=== PATIENT | female | born 1960 | race Caucasian/White ===

== ENCOUNTER 2018-02-22 20:27 | Emergency (ER) | payer OTHER ==
[~2018-02-22] VITALS: Ht 157.5 cm; Wt 62.6 kg
--- NOTE | 2018-02-22 20:33 | NUR ---
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 PER PT, SHE WAS USING HOME-GYM EQUIPMENT WHEN SHE TRIPPED, RESULTING IN A FALL WHERE SHE HIT HER HEAD ON THE METAL EQUIPMENT. PTS DAUGHTER CALLED 911, BUT PT DENIED TRANSPORT WHEN EMS ARRIVED. PT DENIES SYNCOPAL EPISODE. DENIES LOC. PT IS A&0X4. NO ACTIVE BLEEDING NOTED AT LACERATION.
[2018-02-22] MEDS ORDERED: LIDOCAINE HCL 1% 20 ML VIAL IJ ONE (20:45)
[2018-02-22] MEDS ORDERED: TDAP DIPH,PERTUSS,TET VAC/PF 0.5 ML DISP.SYRIN IM ONE ×2 (20:45→21:02)
--- NOTE | 2018-02-22 20:52 | NUR ---
DR VIVIAN TSE AT BEDSIDE FOR SUTURE.
[2018-02-22] MEDS ORDERED: NEOMY/BACITRA/POLYMYXIN B OINT UD PACKET TP ONE ×2 (21:19→21:30)
--- NOTE | 2018-02-22 21:38 | NUR ---
WOUND CARE PROVIDED FOR LACERATION W/ USE OF NORMAL SALINE AND TRIPLE ANTIBIOTIC OINTMENT. FAMILY AT BEDSIDE. PT A&OX4, AND DENIESS PAIN OR ANY ACUTE DISTRESS AT THIS TIME. PENDING CT SCANS.
--- NOTE | 2018-02-22 21:40 | NUR ---
RADIOLOGY CALLED FOR CT SCANS.
--- NOTE | 2018-02-22 22:14 | NUR ---
RADIOLOGY CALLED AGAIN TO TAKE PT FOR CT.
--- NOTE | 2018-02-22 22:24 | NUR ---
PT TAKEN BY [employer]ETING MANAGER FOR CT VIA WHEELCHAIR. ACCOMPANIED BY GRANDDAUGHTER. NO ACUTE DISTRESS NOTED.
--- NOTE | 2018-02-22 22:40 | NUR ---
PT BACK IN ROOM FROM CT. NO ACUTE EVENTS.
--- NOTE | 2018-02-22 22:52 | NUR ---
Patient discharged to home in stable conditon. Written and verbal after care instructions given. Patient verbalizes understanding of instructions. Pt ambulated from ER w/ steady gait, accompanied by granddaughter. No active bleeding. Pt denies dizziness, n/v, or pain at this time. Pt took all personal belongings.
[2018-02-22 22:53] VITALS: BP 122/78
== END 2018-02-22 22:53 | disposition home or self-care (01) ==
LOC: ER 20:28
DX: S01.01XA Laceration without foreign body of scalp, initial encounter (principal); W01.198A Fall on same level from slipping, tripping and stumbling with subsequent striking against other object, initial encounter; Y93.89 Activity, other specified; Y92.89 Other specified places as the place of occurrence of the external cause; Y99.8 Other external cause status
CPT/HCPCS: 70450; 72125; 90715; A4217; A4663; J3490

== ENCOUNTER 2023-07-13 17:03 | Emergency (ER) | payer OTHER ==
[~2023-07-13] VITALS: Ht 157.5 cm; Wt 65.8 kg
[2023-07-13] MEDS ORDERED: AMOX1TAB16 PO (17:39)
[2023-07-13] MEDS ORDERED: BENZ-13 PO (17:39)
[2023-07-13] MEDS ORDERED: AZIT250T13 PO (20:20)
[2023-07-13] MEDS ORDERED: ACET1TAB23 PO (20:20)
[2023-07-13] MEDS ORDERED: ALBU18HF2 INH (20:20)
[2023-07-13] MEDS ORDERED: AZITHROMYCIN 250 MG TABLET PO ONE (20:45)
[2023-07-13] MEDS ORDERED: AZITHROMYCIN 250 MG TABLET ONE (20:58)
[2023-07-13 21:21] VITALS: BP 155/95; O2SAT 97
== END 2023-07-13 21:15 | disposition home or self-care (01) ==
LOC: ER 17:16
DX: J40 Bronchitis, not specified as acute or chronic (principal); R09.1 Pleurisy; Z79.2 Long term (current) use of antibiotics; Z79.899 Other long term (current) drug therapy
CPT/HCPCS: 71046; 93005; A4663; Q0144